=== PATIENT | female | born 1995 | race Caucasian/White ===

== ENCOUNTER 2023-10-02 16:45 | Emergency (ER) | payer OTHER ==
[~2023-10-02] VITALS: Ht 170.2 cm; Wt 68.9 kg
[2023-10-02 17:08] VITALS: BP_SYST 134; PULSE 68; RESP 20; TEMP 97.4; O2SAT 100
[2023-10-02 18:12] LABS: BILIRUBIN,URINE NEGATIVE (NEGATIVE); BLOOD, URINE NEGATIVE (NEGATIVE); CLARITY/URINE CLEAR (CLEAR); COLOR,URINE YELLOW (YELLOW); GLUCOSE,URINE NEGATIVE (NEGATIVE); KETONES,URINE TRACE (NEGATIVE); LEUKOCYTE ESTERASE ,URINE NEGATIVE (NEGATIVE); NITRITE, URINE NEGATIVE (NEGATIVE); PH,URINE 6.5 (5.0-8.0); PROTEIN URINE NEGATIVE (NEGATIVE); UROBILINOGEN,URINE 0.2 (0.2-1.0)
[2023-10-02 18:25] LABS: BASOPHILS # (AUTO) 0.1 K/uL (0.0-0.2); BASOPHILS % (AUTO) 0.5 % (0.0-2.0); EOSINOPHILS # (AUTO) 0.1 K/uL (0.0-0.4); EOSINOPHILS % (AUTO) 0.7 % (0.0-4.0); HEMATOCRIT 39.1 % (36-48); HEMOGLOBIN 13.4 g/dL (12.0-16.0); LYMPHOCYTES # (AUTO) 2.2 K/uL (1.0-5.5); LYMPHOCYTES % (AUTO) 22.8 % (20.5-51.5); MEAN CORPUSCULAR HEMOGLOBIN 33 pg (27-31); MEAN CORPUSCULAR HGB CONC 34 % (32-36); MEAN CORPUSCULAR VOLUME 97 fL (79.0-98.0); MONOCYTES # (AUTO) 0.5 K/uL (0.0-1.0); NEUTROPHILS # (AUTO) 6.9 K/uL (1.8-7.7); PLATELET COUNT (AUTO) 324 K/uL (130-430); RED BLOOD CELL COUNT(AUTO) 4.02 MIL/uL (4.2-6.2); RED CELL DISTRIBUTION WIDTH 13.6 % (9.0-15.0); WHITE BLOOD COUNT (AUTO) 9.8 K/uL (4.8-10.8)
[2023-10-02 18:51] LABS: ALBUMIN 4.1 g/dL (3.4-4.8); BILIRUBIN,DIRECT 0.1 mg/dL (0.0-0.3); CALCIUM 8.2 mg/dL (8.4-11.0); CREATININE 0.49 mg/dL (0.55-1.30); TOTAL BILIRUBIN 0.5 mg/dL (0.0-1.0); TOTAL PROTEIN, SERUM 7.4 g/dL (6.4-8.3)
[2023-10-02] MEDS ORDERED: ACET-2634 PO (19:19)
[2023-10-02 19:49] VITALS: BP_SYST 134; PULSE 68; RESP 20; TEMP 97.4; O2SAT 100
== END 2023-10-02 19:49 | disposition home or self-care (01) ==
LOC: SED 16:45
DX: O26.891 Other specified pregnancy related conditions, first trimester (principal); Z3A.01 Less than 8 weeks gestation of pregnancy; Z79.899 Other long term (current) drug therapy
CPT/HCPCS: 36415; 76801; 76817; 80048; 80076; 81001; 81003; 83690; 84702; 85025; 99284

== ENCOUNTER 2024-04-15 21:35 | Emergency (ER) | payer OTHER ==
[~2024-04-15] VITALS: Ht 170.2 cm; Wt 71.7 kg
[~2024-04-15 21:35] MED LIST: ACET-2634 PO
[2024-04-15 22:08] VITALS: BP_SYST 118; PULSE 104; RESP 18; TEMP 98.3; O2SAT 98
[2024-04-15] MEDS: ONDANSETRON 4 MG ODT TAB PO ONE (22:21)
[2024-04-15] MEDS: FAMOTIDINE 20 MG TABLET PO ONE (22:38)
[2024-04-15] MEDS: MAG-AL HYDROX/SIMETH 30 ML UDC PO ONE (22:38)
[2024-04-15 23:10] LABS: BASOPHILS % (AUTO) 0.2 % (0.0-2.0); EOSINOPHILS % (AUTO) 0.1 % (0.0-4.0); HEMATOCRIT 43.3 % (36-48); HEMOGLOBIN 14.8 g/dL (12.0-16.0); LYMPHOCYTES # (AUTO) 0.6 K/uL (1.0-5.5); LYMPHOCYTES % (AUTO) 4.2 % (20.5-51.5); MEAN CORPUSCULAR HEMOGLOBIN 33 pg (27-31); MEAN CORPUSCULAR HGB CONC 34 % (32-36); MEAN CORPUSCULAR VOLUME 98 fL (79.0-98.0); MONOCYTES # (AUTO) 0.9 K/uL (0.0-1.0); MONOCYTES % (AUTO) 6.1 % (1.7-9.3); NEUTROPHILS # (AUTO) 13.6 K/uL (1.8-7.7); NEUTROPHILS % (AUTO) 89.4 % (40.0-70.0); PLATELET COUNT (AUTO) 312 K/uL (130-430); RED BLOOD CELL COUNT(AUTO) 4.44 MIL/uL (4.2-6.2); RED CELL DISTRIBUTION WIDTH 13.6 % (9.0-15.0); WHITE BLOOD COUNT (AUTO) 15.2 K/uL (4.8-10.8)
[2024-04-15 23:52] LABS: ALBUMIN 4.4 g/dL (3.4-4.8); BILIRUBIN,DIRECT 0.1 mg/dL (0.0-0.3); CALCIUM 8.8 mg/dL (8.4-11.0); CREATININE 0.82 mg/dL (0.55-1.30); POTASSIUM 3.6 mmol/L (3.5-5.1); TOTAL BILIRUBIN 0.4 mg/dL (0.0-1.0); TOTAL PROTEIN, SERUM 8.1 g/dL (6.4-8.3)
[2024-04-16 00:42] LABS: BILIRUBIN,URINE NEGATIVE (NEGATIVE); BLOOD, URINE 3+ (NEGATIVE); COLOR,URINE YELLOW (YELLOW); GLUCOSE,URINE NEGATIVE (NEGATIVE); KETONES,URINE TRACE (NEGATIVE); LEUKOCYTE ESTERASE ,URINE NEGATIVE (NEGATIVE); NITRITE, URINE NEGATIVE (NEGATIVE); PROTEIN URINE TRACE (NEGATIVE); UROBILINOGEN,URINE 0.2 (0.2-1.0)
[2024-04-16 01:20] LABS: CLARITY/URINE HAZY (CLEAR); RBC,URINE 20-50 /HPF (0-3)
[2024-04-16 01:21] LABS: WBC,URINE 0-3 /HPF (0-3)
[2024-04-16 01:23] LABS: BACTERIA,URINE None Seen /HPF (None Seen)
[2024-04-16] MEDS ORDERED: FAMO-132 PO (02:03)
[2024-04-16] MEDS ORDERED: ANT30 PO (02:03)
[2024-04-16 02:21] VITALS: BP_SYST 117; PULSE 93; RESP 18; TEMP 97.6; O2SAT 100
== END 2024-04-16 02:21 | disposition home or self-care (01) ==
LOC: SED 21:35
DX: R10.13 Epigastric pain (principal); R11.10 Vomiting, unspecified; R20.2 Paresthesia of skin; Z79.899 Other long term (current) drug therapy; Z79.2 Long term (current) use of antibiotics
CPT/HCPCS: 99284; 76705; 80076; 80048; 81000; 81001; 83690; 85025; 36415; 81025; 81015; Q0162

== ENCOUNTER 2024-04-19 13:39 | Emergency (ER) | payer OTHER ==
[~2024-04-19] VITALS: Ht 170.2 cm; Wt 70.8 kg
[~2024-04-19 13:39] MED LIST changes: +ANT30 PO; +FAMO-132 PO
[2024-04-19 13:52] VITALS: BP_SYST 131; PULSE 70; RESP 18; TEMP 98.4; O2SAT 99
[2024-04-19 14:32] LABS: BILIRUBIN,URINE NEGATIVE (NEGATIVE); BLOOD, URINE NEGATIVE (NEGATIVE); CLARITY/URINE CLEAR (CLEAR); COLOR,URINE YELLOW (YELLOW); GLUCOSE,URINE NEGATIVE (NEGATIVE); KETONES,URINE NEGATIVE (NEGATIVE); LEUKOCYTE ESTERASE ,URINE NEGATIVE (NEGATIVE); NITRITE, URINE NEGATIVE (NEGATIVE); PROTEIN URINE NEGATIVE (NEGATIVE); UROBILINOGEN,URINE 0.2 (0.2-1.0)
[2024-04-19] MEDS: IBUPROFEN 600 MG TABLET PO ONE (15:45)
[2024-04-19] MEDS ORDERED: NAPR-1172 PO (16:51)
[2024-04-19 17:01] VITALS: BP_SYST 113; PULSE 60; RESP 15; TEMP 97.3; O2SAT 100
== END 2024-04-19 17:01 | disposition home or self-care (01) ==
LOC: SED 13:39
DX: R10.30 Lower abdominal pain, unspecified (principal); Z79.899 Other long term (current) drug therapy; Z79.2 Long term (current) use of antibiotics
CPT/HCPCS: 76856; 81001; 81003; 99284